=== PATIENT | female | born 1975 | race Hispanic/Latino ===

== ENCOUNTER → 2023-08-27 | Outpatient (CLI) | payer BC | END | disposition home or self-care (01) | LOC: RAH 13:32 | PROVIDERS: ATTEND Family Medicine | DX: N94.89 Other specified conditions associated with female genital organs and menstrual cycle (principal); D25.9 Leiomyoma of uterus, unspecified; N92.0 Excessive and frequent menstruation with regular cycle; R51.9 Headache, unspecified; I70.90 Unspecified atherosclerosis; N83.8 Other noninflammatory disorders of ovary, fallopian tube and broad ligament | CPT/HCPCS: 70450; 76856 ==